=== PATIENT | female | born 1975 | race Two or more races ===

== ENCOUNTER 2025-06-06 15:33 | Emergency (ER) | payer OTHER ==
[~2025-06-06] VITALS: Ht 154.9 cm; Wt 52.2 kg
[2025-06-06] MEDS ORDERED: CEFTRIAXONE SODIUM 1,000 MG VIAL IM ONE (16:30)
[2025-06-06] MEDS ORDERED: KETOROLAC TROMETHAMINE 60 MG VIAL IM ONE ×2 (16:30→16:58)
[2025-06-06] MEDS ORDERED: DEXAMETHASONE SODIUM PHOSPHATE 4 MG/ML VIAL IM ONE (16:30)
[2025-06-06] MEDS ORDERED: GUAIFENESIN 200 MG/10 ML BLIST.PACK PO ONE (16:30)
[2025-06-06] MEDS ORDERED: CEFTRIAXONE SODIUM 1,000 MG VIAL ONE (16:58)
[2025-06-06] MEDS ORDERED: GUAIFEN/DEXTROMETHORPHAN/PE 10 ML BLIST.PACK PO ONE (16:58)
[2025-06-06] MEDS ORDERED: DEXAMETHASONE SODIUM PHOSPHATE 4 MG/ML VIAL ONE (16:58)
[2025-06-06 18:03] LABS: BASO % 0.5 % (0.1-1.2); EOS # 0.06 (0.04-0.54); EOS % 0.9 % (0.7-7.0); LYMPH # 1.37 (1.18-3.74); LYMPH % 21.0 % (19.3-53.1); MEAN PLATELET VOLUME 10.40 fl (9.4-12.4); MONO # 0.48 (0.24-0.82); MONO % 7.4 % (4.7-12.5); NEUT # 4.55 (1.56-6.13); NEUT % 69.9 % (34.0-71.1); RED CELL DISTRIBUTION WIDTH 11.8 % (11.6-14.4)
[2025-06-06 18:24] LABS: COVID-19 AG NEGATIVE (NEGATIVE)
[2025-06-06 18:46] LABS: ALT/SGPT 27.0 U/L (12-78); AST/SGOT 16.0 U/L (15-37); BILIRUBIN TOTAL 0.55 mg/dL (0.3-1.2); BUN CREA RATIO 17.0 (7.0-25.0); CREATININE SERUM 0.58 mg/dL (0.55-1.02); GFR 110.04; GLOBULINA 3.2 G/DL (2.4-3.5); GLUCOSE FASTING 171.0 mg/dL (65-100); OSMOLALITY SERUM 288.0 MOSM/KG (275-295)
[2025-06-06] MEDS ORDERED: VANACOF DM LIQ240 ML PO (19:29)
[2025-06-06] MEDS ORDERED: NEO-POLYMYXIN-H10 M1 OTIC (19:29)
== END 2025-06-06 20:37 | disposition home or self-care (01) ==
LOC: ER 15:34
DX: J06.9 Acute upper respiratory infection, unspecified (principal); Z91.041 Radiographic dye allergy status; Z88.1 Allergy status to other antibiotic agents